=== PATIENT | male | born 1965 | race Caucasian/White ===

== ENCOUNTER 2018-01-02 14:53 | Outpatient (CLI) | payer BC ==
--- NOTE | 2018-01-02 15:23 | CT ---
CT BRAIN WITHOUT CONTRAST: Date: 01/02/18 HISTORY: Subdural hematoma. COMPARISON: CT brain from [facility] dated 01/01/18, although this is of a different patient name. FINDINGS: Mixed density subdural hematoma along the right convexity has increased in size in maximal dimension of 16.0 mm, previously 12.0 mm. There is some mild edema and loss of sulcation of the right frontal, temporal, and parietal lobes. There is midline shift of right to left of 15 mm, subfalcine herniation . This midline shift had only been 10 mm on the prior examination. There is early right uncal herniat ion. There is dilatation of the right lateral ventricular system. No new hemorrhage is appreciated. IMPRESSION: Enlarging right subdural hematoma and worsening right to left midline shift. Findings discussed with the neurosurgeon JAMISON. Plan is for patient to go to [facility], who was noti fied of incoming patient. POS: [facility]
== END 2018-01-02 14:54 | disposition home or self-care (01) ==
LOC: TBSIIMAG 14:53
PROVIDERS: ATTEND Neurological Surgery
DX: S06.5X0A Traumatic subdural hemorrhage without loss of consciousness, initial encounter (principal)
CPT/HCPCS: 70450

== ENCOUNTER 2018-01-02 15:38 | Inpatient (IN) | payer BC ==
[2018-01-02] MEDS ORDERED: Thrombin 5000 UNITS/5 ML VIAL ONE (15:55)
[2018-01-02] MEDS ORDERED: Lidocaine 0.5%/Epinephrine 1:200,000 50 ml Vial ONE (15:55)
[2018-01-02 16:07] LABS: #Basophils 0.1 thou/uL (0.0-0.2); #Lymphocytes 1.4 thou/uL (1.20-3.40); #Monocytes 0.9 thou/uL (0.11-0.59); #Neutrophils 5.4 thou/uL (1.40-6.50); %Basophils 0.8 % (0.0-1.0); %Eosinophils 0.4 % (0.0-10.0); %Lymphocytes 17.7 % (21.0-51.0); %Monocytes 11.2 % (0.0-10.0); %Neutrophils 69.8 % (42.0-75.0); Hemoglobin 14.2 g/dL (14.0-18.0); Mean Corpuscular Hemoglobin 33.1 pg (27.0-31.0); Mean Corpuscular Volume 97.3 fL (78.0-98.0); Mean Platelet Volume 5.9 fL (7.4-10.4); Platelet Count 420 thou/uL (130-400); RBC Distribution Width 12.3 % (11.5-14.5); Red Blood Cell (RBC) Count 4.28 mill/uL (4.70-6.10); White Blood Cell (WBC) Count 7.8 thou/uL (4.8-10.8)
[2018-01-02 16:17] LABS: PTT 28.1 SEC (22.9-36.1); Prothrombin Time 12.9 SEC (12.0-14.7)
[2018-01-02] MEDS ORDERED: Fentanyl 100 MCG/2 ML VIAL ONE ×2 (16:17→17:30)
[2018-01-02 16:27] LABS: ALT (SGPT) 13 U/L (8-55); AST (SGOT) 11 U/L (5-34); Albumin 4.3 g/dL (3.5-5.0); Alkaline Phosphatase 83 U/L (40-150); Anion Gap 12 mmol/L (10-20); BUN (Urea Nitrogen) 12 mg/dL (8.4-25.7); Bilirubin, Total 0.7 mg/dL (0.2-1.2); Calc. Creatinine Clearance 0 mL/min (70-130); Calcium 10.3 mg/dL (7.8-10.44); Carbon Dioxide 27 mmol/L (22-29); Chloride 104 mmol/L (98-107); Estimated GFR-MDRD Greater than 90; Globulin 3.3 g/dL (2.4-3.5); Glucose 104 mg/dL (70-105); Potassium 4.1 mmol/L (3.5-5.1); Protein, Total 7.6 g/dL (6.0-8.3); Sodium 139 mmol/L (136-145)
[2018-01-02] MEDS ORDERED: Succinylcholine Chloride 20 MG/ML 10 ml SYRINGE FS ONE (16:43)
[2018-01-02] MEDS ORDERED: Bacitracin Zinc Ointment 30 gm TUBE ONE ×2 (17:29→17:30)
[2018-01-02] MEDS ORDERED: diphenhydrAMINE 50 MG/ML VIAL IVP PRN (17:31)
[2018-01-02] MEDS ORDERED: Mag-Al 1200 mg/1200 mg/30 ML UDCUP PO PRN (17:31)
[2018-01-02] MEDS ORDERED: Labetalol HCl 100 MG/20 ML VIAL SLOW IVP PRN (17:31)
[2018-01-02] MEDS ORDERED: Ondansetron HCl/PF 4 MG/2 ML Vial IVP PRN (17:31)
[2018-01-02] MEDS ORDERED: Promethazine HCl 25 MG/ML VIAL SLOW IVP PRN (18:00)
[2018-01-02] MEDS ORDERED: Promethazine HCl 25 MG/ML VIAL IM PRN (18:00)
[2018-01-02] MEDS ORDERED: CEFAZOLIN/Water 2 GM/20 ML SYRINGE SLOW IVP SCH (18:00)
[2018-01-02 19:55] VITALS: BMI 26.8
[2018-01-02] MEDS: Sodium Chloride 0.9% 1,000 ML IV SCH (20:16)
--- NOTE | 2018-01-03 | OP ---
DATE OF PROCEDURE: 01/02/2018 SURGEON: Isauro Sahu MD CLIN APPLICATION SPECIALIST: Juvencio Hussein PA-C INDICATION: Prevent neurologic decline. DIAGNOSIS: Acute on subacute chronic subdural hematoma over the right cerebral convexity. PROCEDURE: Right frontal edgar hole with evacuation of subdural hematoma. ANESTHESIA: General. DESCRIPTION OF PROCEDURE: The patient was brought into the operating room and placed under general a nesthesia. He was placed on the table in the supine position. A linear incision was planned over th e right frontal bone. This area was infiltrated with lidocaine and prepped and draped in usual steri le fashion. Following an appropriate operative pause, the incision was created. A self-retaining re tractor was placed. A administrative services coordinator was used to place a edgar hole. The underlying dura was identified and a cruciate incision placed within the dura. Acute clot as well as significant degree of chronic blood was irrigated away. A red rubber tube drain was placed through the edgar hole and brought out t hrough a separate puncture site from within the skin. The wound was then closed in anatomic layers a nd a pressure dressing was applied. There were no known procedural complications.
[2018-01-03] MEDS: CEFAZOLIN/Water 2 GM/20 ML SYRINGE SLOW IVP SCH ×3 (00:37→16:32)
[2018-01-03] MEDS: Acetaminophen 325 MG TAB PO PRN ×2 (04:34→16:28)
[2018-01-03 04:49] LABS: #Basophils 0.1 thou/uL (0.0-0.2); #Lymphocytes 1.4 thou/uL (1.20-3.40); #Neutrophils 6.8 thou/uL (1.40-6.50); %Basophils 0.6 % (0.0-1.0); %Eosinophils 0.3 % (0.0-10.0); %Lymphocytes 14.8 % (21.0-51.0); %Neutrophils 73.3 % (42.0-75.0); Hemoglobin 13.3 g/dL (14.0-18.0); Mean Corpuscular HGB CONC 33.9 g/dL (32.0-36.0); Mean Corpuscular Hemoglobin 33.1 pg (27.0-31.0); Mean Corpuscular Volume 97.8 fL (78.0-98.0); Mean Platelet Volume 6.1 fL (7.4-10.4); Platelet Count 362 thou/uL (130-400); RBC Distribution Width 12.4 % (11.5-14.5); Red Blood Cell (RBC) Count 4.01 mill/uL (4.70-6.10); White Blood Cell (WBC) Count 9.3 thou/uL (4.8-10.8)
[2018-01-03 05:29] LABS: Anion Gap 14 mmol/L (10-20); BUN (Urea Nitrogen) 8 mg/dL (8.4-25.7); Calc. Creatinine Clearance 139 mL/min (70-130); Calcium 9.8 mg/dL (7.8-10.44); Carbon Dioxide 25 mmol/L (22-29); Chloride 104 mmol/L (98-107); Estimated GFR-MDRD Greater than 90; Glucose 92 mg/dL (70-105); Potassium 3.9 mmol/L (3.5-5.1); Sodium 139 mmol/L (136-145)
[2018-01-03] MEDS: Metoprolol Tartrate 50 MG TAB PO SCH ×2 (08:16→21:18)
[2018-01-03] MEDS: Sodium Chloride 0.9% 1,000 ML IV SCH ×2 (08:16→16:20)
--- NOTE | 2018-01-03 14:25 | CON ---
DATE OF CONSULTATION: 01/03/2018 SERVICE: Pulmonary Medicine. REASON FOR CONSULTATION: ICU patient. HISTORY OF PRESENT ILLNESS: The patient is a 52-year-old white male with past medical history significant for hypertension. He was in his usual state of health until a couple of weeks ago when he had onset of headache. He had a subdural hematoma. This was observed for a period of time, but ultimately, did not require any additional intervention. He was discharged from the hospital, but the headache got worse. He presented to Neurosurgery in the outpatient setting. Because of some new onset neurologic changes, he was subsequently admitted to the hospital after craniotomy was performed and evacuation of the subdural was done. He is postop day #1 from the surgery. He has a drain in place. He denies any current fevers, chills, nausea, vomiting, chest pain, shortness of breath. His only neurologic complaint is a little bit of apraxia. He reached over and felt the remote and picked up. When he did that, he could not identify with his eyes closed as a remote control. PAST MEDICAL HISTORY: Hypertension. PAST SURGICAL HISTORY: 1. Herniorrhaphy. 2. Craniotomy for subdural hematoma. SOCIAL HISTORY: He chews tobacco on a daily basis. He has a [id number]-czds history of smoking and continues to smoke roughly 1 pack per day. He denies any significant alcohol or illicit drug use. FAMILY HISTORY: Noncontributory. ALLERGIES: No known drug allergies. MEDICATIONS: List of his inpatient medications were reviewed. No specific updates were made at this time. REVIEW OF SYSTEMS: General, head, ears, eyes, nose, throat, cardiovascular, respiratory, GI, , musculoskeletal, neurologic and skin is negative as mentioned in the HPI. PHYSICAL EXAMINATION: VITAL SIGNS: Afebrile with a T-max of 100.1, pulse 65, blood pressure 130/83, respirations 22, saturation 100% on room air. GENERAL: The patient is awake, alert, no apparent distress. LUNGS: Excellent air entry with no prolonged expiratory phase, wheezing, rhonchi, or crackles present. HEART: Normal rate, regular. ABDOMEN: Soft, nontender, nondistended. Bowel sounds are positive. MUSCULOSKELETAL: No cyanosis or clubbing. No pitting in the bilateral lower extremities. NEUROLOGIC: Grossly nonfocal with the exception of some apraxia. LABORATORY DATA: WBC 9.3, hemoglobin 13.3, platelets 362,000. INR 1.0. Basic metabolic profile and liver function studies are essentially unremarkable. ASSESSMENT: 1. Subdural hematoma, acute on chronic. 2. Abnormal sterogenesis. 3. Right frontal bur hole with evacuation of subdural hematoma, postop day #1. PLAN: The patient is doing absolutely fantastic from a cardiovascular and respiratory standpoint. He will remain in the ICU until the drain is removed and he remains neurologically stable. Critical Care will continue to follow along in the meantime. ANN
[2018-01-03] MEDS: hydrALAZINE 20 MG/ML VIAL SLOW IVP PRN (21:21)
[2018-01-04] MEDS: Acetaminophen 325 MG TAB PO PRN ×3 (00:13→15:11)
[2018-01-04] MEDS: CEFAZOLIN/Water 2 GM/20 ML SYRINGE SLOW IVP SCH ×2 (00:14→09:00)
[2018-01-04] MEDS: Sodium Chloride 0.9% 1,000 ML IV SCH (03:15)
[2018-01-04] MEDS: hydrALAZINE 20 MG/ML VIAL SLOW IVP PRN (07:41)
[2018-01-04] MEDS: Metoprolol Tartrate 50 MG TAB PO SCH (08:59)
--- NOTE | 2018-01-04 10:18 | PRG ---
DATE OF SERVICE: 01/04/2018 SUBJECTIVE: Mr. Joel is now postop day #2 from a right subdural hematoma evacuation. He is azeb lewis in the last 12 hours, put out 70 mL while putting out 150 mL 12 hours prior to that. We will le ave the drain in place. He has minimal discomfort and overall looks to be doing very well. We will continue to follow and check again this afternoon to see if the output has tapered. As soon as it walker s been down to either 20-30 mL per 12 hour period, then we can discontinue and start talking about di moreno home. Juvencio Hussein PA-C dictating for Dr. Sahu.
--- NOTE | 2018-01-04 16:32 | PRG ---
DATE OF SERVICE: 01/04/2018 SERVICE: Pulmonary Medicine. INTERVAL HISTORY: The patient is actually doing fantastic. He has some head pain associated with th e procedure, but the headache that brought him to the hospital is gone. He is not having any nausea or vomiting. He is not having any lightheadedness or any significant neurologic discomforts. His ap raxia seems to be improving a little bit, although it still present. OBJECTIVE: VITAL SIGNS: Afebrile, pulse 72, blood pressure 135/83, respirations 16, saturation 98% on room air. GENERAL: The patient is awake, alert, no apparent distress. LUNGS: Excellent air entry with no prolonged expiratory phase, wheezing, rhonchi or crackles. HEART: Normal rate, regular. ABDOMEN: Soft, nontender, nondistended. Bowel sounds are positive. MUSCULOSKELETAL: No cyanosis or clubbing. No pitting in the bilateral lower extremities. NEUROLOGIC: Grossly nonfocal. LABORATORY DATA: WBC 9.3, hemoglobin 13.3, platelets 362,000. Neutrophil count is stable. ASSESSMENT: 1. Subdural hematoma, acute on chronic. 2. Apraxia, improving. 3. Right frontal bur hole with evacuation of subdural hematoma, postoperative day #2. DISCUSSION AND PLAN: The patient is doing absolutely fantastic. He has no further requirements for inpatient Pulmonary or Critical Care opinion, and I will sign off. Please call with additional quest ions or concerns moving forward.
[2018-01-04 16:44] VITALS: BP 161/92; TEMP 99
[2018-01-04] MEDS ORDERED: Metoprolol Tartrate 50 MG TAB PO SCH (21:00)
== END 2018-01-04 17:34 | disposition home or self-care (01) | DRG 27 ==
LOC: ERS 15:38 → CCU 18:06 → SURG A 01-03 14:40
PROVIDERS: ADMIT Neurological Surgery; ATTEND Neurological Surgery
PROC: 00943ZZ Drainage of Intracranial Subdural Space, Percutaneous Approach (ICD-10-PCS; principal; 2018-01-02)
DX: I62.01 Nontraumatic acute subdural hemorrhage (principal); I62.03 Nontraumatic chronic subdural hemorrhage; F17.210 Nicotine dependence, cigarettes, uncomplicated; F17.220 Nicotine dependence, chewing tobacco, uncomplicated; R48.2 Apraxia
CPT/HCPCS: 36415; 70450; 80048; 80053; 85025; 85610; 85730; G8978-GP-CH; G8979-GP-CH; G8980-GP-CH; J0131; J0360; J2001; J2270; J3010

== ENCOUNTER 2018-02-12 08:06 | Outpatient (CLI) | payer BC ==
--- NOTE | 2018-02-12 09:57 | CT ---
HEAD CT WITHOUT CONTRAST: HISTORY: Follow up subdural. COMPARISON: 01/02/2018 FINDINGS: There is a small amount of hypodense fluid in the extraaxial space, along the right frontal convexity . Minimal mass effect upon the right frontal lobe. The maximum diameter of this hypodensity is 8 mm . A chronic subdural collection is favored. The overall degree of subdural fluid has significantly decreased when compared to the prior examination, as has the overall mass effect. Currently, there i s no midline shift. The basilar cisterns are patent. Cortical salcedo white matter differentiation is preserved. No evidence of ventriculomegaly/hydrocephalus. The calvarium is intact. A right frontal bur hole defect is noted. Adequate aeration of the sinuses and mastoid air cells. IMPRESSION: 1. Residual, small, hypodense collection along the right frontal convexity, likely representing a ch ronic subdural hematoma. 2. Improvement in terms of the degree of mass effect. There is no midline shift. POS: [facility]
== END 2018-02-12 08:07 | disposition home or self-care (01) ==
LOC: TBSIIMAG 08:06
PROVIDERS: ATTEND Neurological Surgery
DX: S06.5X0A Traumatic subdural hemorrhage without loss of consciousness, initial encounter (principal)
CPT/HCPCS: 70450

== ENCOUNTER 2018-03-25 15:36 | Outpatient (CLI) | payer BC | END 2018-03-25 15:37 | disposition home or self-care (01) | LOC: BICCT 15:36 | PROVIDERS: ATTEND Neurological Surgery | DX: I62.00 Nontraumatic subdural hemorrhage, unspecified (principal); R90.89 Other abnormal findings on diagnostic imaging of central nervous system | CPT/HCPCS: 70450 ==

== ENCOUNTER 2018-07-03 08:44 | Outpatient (CLI) | payer BC ==
--- NOTE | 2018-07-03 10:43 | CT ---
CT BRAIN: 07/03/2018 PROVIDED CLINICAL HISTORY: Follow up subdural hematoma. COMPARISON: 03/25/2018 FINDINGS: The ventricular system is unchanged in size and morphology. There is no evidence for acute intracran ial hemorrhage. There is minimal material of density, slightly increased with respect to CSF, overly ing the right frontal convexity, appearing decreased with respect to the prior study. This is adjace nt to a right frontal bur hole. There is no evidence for mass effect or midline shift. The extracra nial soft tissues and osseous structures demonstrate an otherwise unremarkable CT appearance. IMPRESSION: Minimal chronic subdural blood overlying the right frontal convexity. POS: [facility]
== END 2018-07-03 08:45 | disposition home or self-care (01) ==
LOC: TBSIIMAG 08:44
PROVIDERS: ATTEND Neurological Surgery
DX: S06.5X0A Traumatic subdural hemorrhage without loss of consciousness, initial encounter (principal)
CPT/HCPCS: 70450

== ENCOUNTER 2018-09-17 08:34 | Outpatient (CLI) | payer BC ==
[2018-09-17 10:44] LABS: Bilirubin Negative (Negative); Blood, Urine Negative (Negative); Glucose, Urine (Dipstick) Negative (Negative); Leukocyte Negative (Negative); Nitrite Negative (Negative); Protein, Urine (Dipstick) Negative (Neg-Trace); Urobilinogen 0.2 mg/dL (0.2-1.0)
[2018-09-17 10:51] LABS: Clarity Clear (Clear)
[2018-09-17 11:09] LABS: Bacteria/HPF None Seen HPF (None Seen); Hyaline Casts/LPF NONE SEEN LPF (0-3 Hyaline); RBC/HPF 0-3 HPF (0-3); Squamous Epithelial None Seen HPF (0-3); WBC/HPF None Seen HPF (0-3)
--- NOTE | 2018-09-17 13:05 | EKG ---
Test Reason : Blood Pressure : / mmHG Vent. Rate : 086 BPM Atrial Rate : 086 BPM P-R Int : 150 ms QRS Dur : 094 ms QT Int : 384 ms P-R-T Axes : 051 052 020 degrees QTc Int : 459 ms Normal sinus rhythm Normal ECG No previous ECGs available Confirmed by CRISTA MELTON ([id number]) on 09/17/2018 1:05:21 PM Referred By: MARLON Confirmed By:CRISTA MELTON
== END 2018-09-17 08:35 | disposition home or self-care (01) ==
LOC: LABBT 08:34
PROVIDERS: ATTEND Orthopaedic Surgery
DX: Z01.818 Encounter for other preprocedural examination (principal); M16.11 Unilateral primary osteoarthritis, right hip
CPT/HCPCS: 81001; 87081; 93005; 93010

== ENCOUNTER 2018-09-17 08:45 | Inpatient (IN) | payer BC ==
[2018-09-28 09:56] LABS: INR-International Normal Ratio 0.9; Prothrombin Time 12.2 SEC (12.0-14.7)
[2018-09-28 10:14] LABS: #Basophils 0.1 thou/uL (0.0-0.2); #Lymphocytes 1.4 thou/uL (1.20-3.40); #Monocytes 0.5 thou/uL (0.11-0.59); #Neutrophils 5.4 thou/uL (1.40-6.50); %Eosinophils 0.5 % (0.0-10.0); %Lymphocytes 18.4 % (21.0-51.0); %Monocytes 6.9 % (0.0-10.0); %Neutrophils 73.2 % (42.0-75.0); Anion Gap 16 mmol/L (10-20); BUN (Urea Nitrogen) 20 mg/dL (8.4-25.7); Calc. Creatinine Clearance 113 mL/min (70-130); Calcium 10.3 mg/dL (7.8-10.44); Carbon Dioxide 25 mmol/L (22-29); Chloride 102 mmol/L (98-107); Estimated GFR-MDRD 82; Glucose 107 mg/dL (70-105); Hemoglobin 14.6 g/dL (14.0-18.0); Mean Corpuscular HGB CONC 33.5 g/dL (32.0-36.0); Mean Corpuscular Hemoglobin 31.8 pg (27.0-31.0); Mean Corpuscular Volume 95.2 fL (78.0-98.0); Mean Platelet Volume 6.8 fL (7.4-10.4); Platelet Count 317 thou/uL (130-400); Potassium 3.7 mmol/L (3.5-5.1); RBC Distribution Width 12.3 % (11.5-14.5); Sodium 139 mmol/L (136-145); White Blood Cell (WBC) Count 7.3 thou/uL (4.8-10.8)
[2018-09-29] MEDS ORDERED: Vancomycin HCl 1.5 GM in Sodium Chloride 0.9% 250 ML 300 ML IVPB SCH (06:00)
[2018-09-29] MEDS ORDERED: Sodium Chloride 0.9% 100 ML ONE (06:23)
[2018-09-29] MEDS ORDERED: Tranexamic Acid 1,000 MG/10 ML VIAL ONE (06:23)
[2018-09-29] MEDS ORDERED: Fentanyl 100 MCG/2 ML VIAL ONE ×2 (06:25→06:53)
[2018-09-29] MEDS ORDERED: Midazolam HCl 2 mg/2 ml Vial ONE (06:25)
[2018-09-29] MEDS ORDERED: Bupivacaine/Epinephrine 0.25% 30 ML VIAL ONE (06:53)
[2018-09-29] MEDS ORDERED: Promethazine HCl 25 MG/ML VIAL IM PRN ×2 (07:07→07:15)
[2018-09-29] MEDS ORDERED: diphenhydrAMINE 25 MG CAP PO PRN (07:07)
[2018-09-29] MEDS ORDERED: Zolpidem Tartrate 5 MG TAB PO PRN ×2 (07:07→07:15)
[2018-09-29] MEDS ORDERED: Ondansetron PF 4 MG/2 ML Vial IVP PRN ×2 (07:07→07:15)
[2018-09-29] MEDS ORDERED: Acetaminophen 325 MG TAB PO PRN (07:07)
[2018-09-29] MEDS ORDERED: Naloxone HCl 0.4 mg/ml Vial IVP PRN (07:15)
[2018-09-29] MEDS ORDERED: HYDROcodone/Acetaminophen 5/325 mg Tablet PO PRN ×2 (07:15)
[2018-09-29] MEDS ORDERED: Ketorolac Tromethamine 30 MG/ML VIAL IVP PRN (07:15)
[2018-09-29] MEDS ORDERED: diphenhydrAMINE 50 MG/ML VIAL IVP PRN (07:15)
[2018-09-29] MEDS ORDERED: fentaNYL Citrate/PF 500 MCG, Bupivacaine 10 ML in Sodium Chloride 0.9% 80 ML EPIDURAL SCH (07:15)
[2018-09-29] MEDS ORDERED: Naloxone HCl 0.4 mg/ml Vial IV PRN (07:15)
[2018-09-29] MEDS ORDERED: Promethazine HCl 25 MG SUPP PR PRN (07:15)
[2018-09-29] MEDS ORDERED: diphenhydrAMINE 50 MG/ML VIAL IM PRN (07:15)
[2018-09-29] MEDS ORDERED: Hydrocerin (Eucerin) Cream 120 gm Jar TOP PRN (07:15)
[2018-09-29] MEDS ORDERED: traMADol HCl 50 MG TAB PO PRN ×2 (07:15)
[2018-09-29] MEDS ORDERED: Ondansetron PF 4 MG/2 ML Vial ONE (09:05)
[2018-09-29] MEDS ORDERED: Dexamethasone 20 MG/5 ML VIAL ONE (09:05)
[2018-09-29] MEDS ORDERED: PROPOFOL 200 MG/20 ML VIAL ONE (09:05)
[2018-09-29] MEDS ORDERED: Glycopyrrolate 0.2 MG/ML 5 ML SYRINGE ONE (09:05)
[2018-09-29] MEDS ORDERED: Lidocaine 1% PF 5 ML VIAL ONE (09:05)
[2018-09-29] MEDS ORDERED: ePHEDrine 50 MG/ML VIAL ONE (09:05)
[2018-09-29] MEDS ORDERED: Ketorolac Tromethamine 30 MG/ML VIAL ONE (09:05)
[2018-09-29] MEDS ORDERED: Rocuronium Bromide 10 MG/ML (10ML VIAL) ONE (09:05)
--- NOTE | 2018-09-29 09:19 | RAD ---
RIGHT HIP TWO VIEWS: History: Post op total hip follow up. FINDINGS/IMPRESSION: Right hip prosthesis has been placed. Components appear in adequate position and alignment. POS: [facility]
[2018-09-29 10:33] VITALS: BMI 27.8
--- NOTE | 2018-09-29 10:45 | PDOC.PN ---
- Subjective Encounter Start Date: 09/29/18 Encounter Start Time: 10:35 Subjective: Consult for gen med mgmt s/p R VILLA. Hx of HTN, HLD and subdural -: hematoma. No new complaints currently. Reviewed all hx, labs, x-rays -: and EKG's. - Objective MAR Reviewed: Yes Vital Signs & Weight: Vital Signs (12 hours) Temp Pulse Resp BP Pulse Ox 09/29/18 09:40 97.4 F L 68 20 108/66 100 Weight Weight 200 lb Result Diagrams: 09/28/18 08:50 09/28/18 08:50 EKG Reviewed by me: Yes (Tele - SR in 80's, no acute changes) Phys Exam - Physical Examination Constitutional: NAD HEENT: PERRLA, sclera anicteric, oral pharynx no lesions Neck: no nodes, no JVD, supple, full ROM Respiratory: no wheezing, no rales, no rhonchi, clear to auscultation bilateral S1, S2 Cardiovascular: RRR, no significant murmur, no rub, gallop Gastrointestinal: soft, non-tender, no distention, positive bowel sounds R hip with surgical dressing in place Musculoskeletal: pulses present, edema present Neurological: moves all 4 limbs Psychiatric: A&O x 3 Skin: no rash, normal turgor, cap refill <2 seconds Dx/Plan (1) HTN (hypertension) Code(s): I10 - ESSENTIAL (PRIMARY) HYPERTENSION Status: Chronic Qualifiers: Hypertension type: essential hypertension Qualified Code(s): I10 - Essential (primary) hypertension Comment: Continue HCTZ 25mg daily, Lisinopril 40mg daily, serial BP monitoring (2) HLD (hyperlipidemia) Code(s): E78.5 - HYPERLIPIDEMIA, UNSPECIFIED Status: Chronic Comment: Continue Crestor (3) DJD (degenerative joint disease) Code(s): M19.90 - UNSPECIFIED OSTEOARTHRITIS, UNSPECIFIED SITE Status: Chronic Qualifiers: Osteoarthritis location: hip Laterality: right Comment: Pain control, s/p R VILLA (4) S/P total hip arthroplasty Code(s): Z96.649 - PRESENCE OF UNSPECIFIED ARTIFICIAL HIP JOINT Status: Acute Qualifiers: Laterality: right Qualified Code(s): Z96.641 - Presence of right artificial hip joint Comment: Pain control, ASA 81mg BID, Joint U protocol - Plan plan discussed w/ family, continue antibiotics, PT/OT, pediatric social worker, out of bed/ambulate, DVT proph w/SCDs Stable currently -: Continue Lisinopril/HCTZ -: ASA 81mg BID -: Pain control -: OOB/PT * Thank you for the consult. Will continue to follow with primary service.
--- NOTE | 2018-09-29 11:11 | OP ---
DATE OF PROCEDURE: 09/29/2018 PREOPERATIVE DIAGNOSIS: End-stage bicompartmental osteoarthritis, right hip. POSTOPERATIVE DIAGNOSIS: End-stage bicompartmental osteoarthritis, right hip. PROCEDURE PERFORMED: Press-fit right total hip arthroplasty. BIOMETRICS INSTRUCTOR: Jasen Arredondo PA-C ANESTHESIA: General via endotracheal tube augmented with indwelling epidural. COMPONENTS USED: [employer] size 3.5 Accolade press-fit hip stem with a 54 mm press-fit Tritanium hemispherical cluster hole shell, 36 mm 10-degree polyethylene fixed-bearing insert. ESTIMATED BLOOD LOSS: Less than 150. FINDINGS: End-stage severe degenerative bicompartmental disease, eppt-tl-yeak arthrosis, periarticular osteophyte formation, large serous effusion, and hypertrophic synovium. INPUT: 1400 crystalloid. OUTPUT: 500 clear yellow urine. DRAINS: None. SPECIMENS: None. COMPLICATION: None. COUNTS: Correct. INDICATIONS FOR SURGERY: Raúl is a 53-year-old white male, who has had progressive right hip, groin, and thigh pain and problem with standing and walking for the last 5 to 7 years. He has failed conservative management and elected to proceed with total hip arthroplasty. He has definitive treatment of his pain. PROCEDURE IN DETAIL: After informed consent was obtained in the preoperative holding area, the patient was taken to the operative suite where general anesthesia was induced. The patient was then positioned in the lateral decubitus position. The hip was then prepped and draped in usual sterile fashion. The patient received preoperative antibiotics. Prior to incision, time-out was called and all members of the surgical team agreed upon site, surgeon, and patient. After this, a longitudinal incision was made directly over the trochanter, noted by palpation extending 2 fingerbreadths above and below the trochanter. The deeper subcutaneous layer was undermined with Bovie electrocautery. The iliotibial band was encountered and incised sharply and the plane below this was developed bluntly. A Charnley retractor was placed to hold this opened. The lateral aspect of the trochanter and the abductor muscles were encountered and then reflected anteriorly off the trochanter using Bovie electrocautery. Once this was completed, the anterior capsule was then encountered and identified and copious capsulotomy was carried out, exposing the femoral neck and head. Dislocation maneuver was then performed and an in situ provisional neck cut was then made using the oscillating saw. Attention was then turned to acetabular preparation. Sequential reaming was carried out up to the appropriate diameter and a trial was then malleted into place with good firm resistance and no pullout. The permanent acetabular shell was then malleted squarely into place, as was the appropriate liner. Once completed, the wound was copiously irrigated and attention was then turned to femoral preparation. Flexion and external rotation were performed of the exposed thigh and femoral elevators were then placed at the proximal aspect of the wound. Canal finder was used to establish the length of the canal and sequential reaming was carried out, followed by broaching. Once the appropriate stability was established with the trial broaches with flexion, extension and rotational stability, we did trial with neutral and 2 mm offset incremental necks. Once the appropriate size was decided upon, with good stability noted with flexion, extension, internal and external rotation and shuck being negative, we removed the femoral trial broach and malletted into place the permanent prosthesis with good firm fit, which was also stable to rotation. Again, the hip felt very stable to flexion, extension, internal and external rotation. Leg lengths appeared near anatomic clinically and we were quite happy with prosthesis placement. Copious irrigation was then carried out through the entirety of the wound. Primary closure of the abductors was accomplished with interrupted #2 Vicryl [id number]-[id number] stitches and the IT band was then closed with interrupted #2 Vicryl, oversewn with a #2 running barbed Quill stitch. Subcutaneous fascia was closed with running barbed Quill stitch and a subcuticular Monocryl barbed Quill stitch was used for skin closure and augmented with skin cement. A sterile dressing was applied. The procedure was terminated without any complication. All counts were correct. The patient was awakened in the operative suite and taken to the recovery room in stable condition. Job ID: [id number]
[2018-09-29] MEDS: Sodium Chloride 0.9% 1,000 ML IV SCH ×2 (11:18→13:15)
[2018-09-29] MEDS: Aspirin 81 mg Enteric Coated Tablet PO SCH ×2 (11:18→21:30)
[2018-09-29] MEDS: CEFAZOLIN 2 GM in Premix Bag 1 BAG IVPB SCH ×2 (13:14→21:31)
[2018-09-29] MEDS: Lisinopril 20 MG TAB PO SCH (21:29)
[2018-09-29] MEDS: Hydrochlorothiazide 25 MG TAB PO SCH (21:29)
[2018-09-29] MEDS: Rosuvastatin 20 MG TAB PO SCH (21:30)
[2018-09-30] MEDS: Fentanyl 5 mcg/Bup 0.075% Cadd 100 ML EPIDURAL SCH ×2 (01:43→18:33)
[2018-09-30 06:21] LABS: Hemoglobin 11.8 g/dL (14.0-18.0); Mean Corpuscular HGB CONC 33.5 g/dL (32.0-36.0); Mean Corpuscular Hemoglobin 32.5 pg (27.0-31.0); Mean Platelet Volume 6.7 fL (7.4-10.4); Platelet Count 246 thou/uL (130-400); RBC Distribution Width 12.1 % (11.5-14.5); Red Blood Cell (RBC) Count 3.62 mill/uL (4.70-6.10); White Blood Cell (WBC) Count 7.9 thou/uL (4.8-10.8)
[2018-09-30] MEDS: Sodium Chloride 0.9% 1,000 ML IV SCH ×2 (07:18→13:35)
[2018-09-30] MEDS: Ferrous Gluconate 324 MG TAB PO SCH ×2 (08:57→16:43)
[2018-09-30] MEDS: Multivitamin W/ Minerals 1 TAB PO SCH (08:58)
[2018-09-30] MEDS: Aspirin 81 mg Enteric Coated Tablet PO SCH (08:58)
[2018-09-30] MEDS: Senokot S 8.6-50 MG TAB PO SCH ×2 (08:59→21:56)
--- NOTE | 2018-09-30 09:54 | PRG ---
DATE OF SERVICE: 09/30/2018 SUBJECTIVE: Mr. Rooney is a 53-year-old white male who is postop day #1 from a right total hip arthroplasty. He is doing very well. Yesterday, he walked 180 feet to 200 feet very well without any difficulty. OBJECTIVE: VITAL SIGNS: Temperature is 98.9, pulse is 90, respiratory rate 16 and nonlabored, blood pressure is 107/76. GENERAL: He is alert and oriented to person, place, time, situation, grossly nonfocal. His incision is clean of any erythema. His epidural is intact. There is no strike through in the dressing and he has good range of motion and strength in the left lower extremity. LABORATORY DATA: Hemoglobin, hematocrit 11.8 and 35.1. IMPRESSION: 1. A 53-year-old male postoperative day #1 right total hip arthroplasty, doing well. 2. Postoperative hemorrhagic asymptomatic anemia. Continue current care. Discharge home tomorrow. Job ID: [id number]
--- NOTE | 2018-09-30 13:42 | PRG ---
DATE OF SERVICE: 09/30/2018 ADDENDUM: SUBJECTIVE: Toribio gives me a history of having an stgys-wb-yjufkeo subdural hematoma in the right frontal convexity in December of last year. He had this evacuated and subsequently has been cautious of anti-inflammatories and blood thinners. After long discussion with the patient and consultation with Dr. Marsh, we decided to go ahead and stop his aspirin for now and probably not place him on discharge since his risk of DVT is very low with mechanical prophylaxis and significant ambulation to include approximately 260 feet yesterday. We will re-evaluate tomorrow. Job ID: [id number]
[2018-09-30] MEDS ORDERED: Polyethylene Glycol 3350 17 GM Packet PO PRN (16:05)
[2018-09-30] MEDS: diphenhydrAMINE 25 MG CAP PO PRN ×2 (16:42→21:50)
[2018-09-30] MEDS: Lisinopril 20 MG TAB PO SCH (21:50)
[2018-09-30] MEDS: Hydrochlorothiazide 25 MG TAB PO SCH (21:55)
[2018-09-30] MEDS: Rosuvastatin 20 MG TAB PO SCH (21:55)
[2018-10-01] MEDS: Sodium Chloride 0.9% 1,000 ML IV SCH ×2 (01:47→08:44)
[2018-10-01 04:57] LABS: Hemoglobin 11.7 g/dL (14.0-18.0); Mean Corpuscular HGB CONC 33.1 g/dL (32.0-36.0); Mean Corpuscular Hemoglobin 32.4 pg (27.0-31.0); Mean Corpuscular Volume 98.1 fL (78.0-98.0); Mean Platelet Volume 6.7 fL (7.4-10.4); Platelet Count 231 thou/uL (130-400); RBC Distribution Width 12.3 % (11.5-14.5); White Blood Cell (WBC) Count 8.7 thou/uL (4.8-10.8)
[2018-10-01] MEDS: Ferrous Gluconate 324 MG TAB PO SCH (08:28)
[2018-10-01] MEDS: Senokot S 8.6-50 MG TAB PO SCH (08:28)
[2018-10-01] MEDS: Multivitamin W/ Minerals 1 TAB PO SCH (08:29)
[2018-10-01] MEDS: diphenhydrAMINE 25 MG CAP PO PRN (08:38)
[2018-10-01 12:16] VITALS: BP 102/64; TEMP 98.1
[2018-10-01] MEDS ORDERED: HYDROcodone/Acetaminophen 10/325 mg Tablet PO PRN ×2 (12:27→12:28)
== END 2018-10-01 14:35 | disposition home or self-care (01) | DRG 470 ==
LOC: SJJU 09-29 05:42 → SURG B 09-29 09:45
PROVIDERS: ADMIT Orthopaedic Surgery; ATTEND Orthopaedic Surgery
PROC: 0SR902A Replacement of Right Hip Joint with Metal on Polyethylene Synthetic Substitute, Uncemented, Open Approach (ICD-10-PCS; principal; 2018-09-29)
DX: M16.11 Unilateral primary osteoarthritis, right hip (principal); D62 Acute posthemorrhagic anemia; I10 Essential (primary) hypertension; E78.5 Hyperlipidemia, unspecified; Z86.79 Personal history of other diseases of the circulatory system
CPT/HCPCS: 36415; 80048; 85025; 85027; 85610; 86850; 86900; 86901; 90471; 90732; G0009; J1100; J1885; J2001; J2250; J2405; J2704; J3010; J3370; J3490; J7050; Q0163

== ENCOUNTER 2019-01-27 12:32 | Outpatient (CLI) | payer BC ==
--- NOTE | 2019-01-27 14:59 | CT ---
BRAIN CT WITHOUT IV CONTRAST: 01/27/19 HISTORY: History of subdural hematoma one year ago. Vomiting and straining, headache. COMPARISON: 07/03/18. FINDINGS: Right frontal edgar hole. No focal mass or midline shift. No intra or extra-axial hemorrhage. Sinuses and mastoids are clear of acute process. Resolution of the previously noted small subdural chronic c hanges on the right side from 07/03/18. IMPRESSION: Stable right frontal edgar hole. No mass or bleed or other acute process. POS: [facility]
== END 2019-01-27 12:33 | disposition home or self-care (01) ==
LOC: SCSCT 12:32
PROVIDERS: ATTEND Internal Medicine
DX: I62.00 Nontraumatic subdural hemorrhage, unspecified (principal)
CPT/HCPCS: 70450

== ENCOUNTER 2019-03-18 05:57 | Day surgery (SDC) | payer BC ==
[2019-03-10 15:46] VITALS: BMI 27.8
[2019-03-18] MEDS ORDERED: Fentanyl 100 MCG/2 ML VIAL ONE (06:28)
[2019-03-18] MEDS ORDERED: Midazolam HCl 2 mg/2 ml Vial ONE (06:28)
[2019-03-18] MEDS ORDERED: traMADol HCl 50 MG TAB PO PRN ×2 (07:10)
[2019-03-18] MEDS ORDERED: Ropivacaine 0.2% 550 ML 550 ML NERVE BLCK SCH (07:10)
[2019-03-18] MEDS ORDERED: Ondansetron PF 4 MG/2 ML Vial IVP PRN (07:10)
[2019-03-18] MEDS ORDERED: Zolpidem Tartrate 5 MG TAB PO PRN (07:10)
[2019-03-18] MEDS ORDERED: Fentanyl 100 MCG/2 ML VIAL IV PRN (07:10)
[2019-03-18] MEDS ORDERED: Promethazine HCl 25 MG/ML VIAL IM PRN (07:10)
[2019-03-18] MEDS ORDERED: Ropivacaine 0.5% HCl/PF (150 MG/30 ML VIAL) ONE (12:20)
[2019-03-18] MEDS ORDERED: Ropivacaine 0.2% HCl/PF (40 MG/20 ML VIAL) ONE (12:20)
[2019-03-18] MEDS ORDERED: Ondansetron PF 4 MG/2 ML Vial ONE (13:00)
[2019-03-18] MEDS ORDERED: PROPOFOL 200 MG/20 ML VIAL ONE (13:00)
[2019-03-18] MEDS ORDERED: Ketorolac Tromethamine 30 MG/ML VIAL ONE (13:00)
[2019-03-18] MEDS ORDERED: PHENYLEPHRINE-NS 100 MCG/ML 10 ML SYRINGE ONE (13:00)
[2019-03-18] MEDS ORDERED: Dexamethasone 20 MG/5 ML VIAL ONE (13:00)
[2019-03-18] MEDS ORDERED: Rocuronium Bromide 10 MG/ML (10ML VIAL) ONE (13:00)
--- NOTE | 2019-03-18 16:48 | OP ---
DATE OF PROCEDURE: 03/18/2019 PREOPERATIVE DIAGNOSES: Right shoulder biceps tendinosis with supraspinatus and subscapularis subacute rotator cuff tears. POSTOPERATIVE DIAGNOSES: Right shoulder biceps tendinosis with supraspinatus and subscapularis subacute rotator cuff tears. PROCEDURES PERFORMED: Mini open primary repair of subscapularis and infraspinatus rotator cuff tendons with open proximal biceps tenodesis and open acromioplasty. UPSET OPERATOR: Jasen Arredondo PA-C ANESTHESIA: General via endotracheal tube augmented with supraclavicular indwelling block. COMPONENTS USED: One 3-arm Arthrex 5.5 metallic suture anchor with 2 Arthrex 4.5 PushLock interference screws. DRAINS: None. SPECIMENS: None. COMPLICATION: None. COUNTS: Correct. ESTIMATED BLOOD LOSS: Less than 20 mL. FINDINGS: Rotator cuff tear as described on MRI to include superior aspect of the subscapularis, biceps tendinosis, and supraspinatus insertional tear, which was delaminated and articular side in nature. DESCRIPTION OF PROCEDURE: After informed consent was obtained in the preoperatively holding area, the patient obtained preoperative antibiotics and he was taken to the operative suite, where general anesthesia was induced. Once adequate anesthesia was obtained, the patient was positioned appropriately on the operating table in the semirecumbent position and the right upper extremity was prepped and draped in the usual sterile fashion. Prior to incision, a time-out was called. All members of the surgical team agreed on site, surgeon, and patient. Once this was finished, we then made an incision directly over the acromion. After this was completed, an incision was made from the acromioclavicular joint over the acromial spur two fingerbreadths down inferior towards the brachium. The subcutaneous layer was divided with Bovie electrocautery. Bleeding was controlled with same. Two self-sustaining retractors were placed and the deltoid middle raphe was identified and split. Subperiosteal dissection was carried out over the acromion and the acromial spur was fully exposed and identified. This was removed using osteotome and series of rongeurs and a rasp. This would also allow it for better exposure of the rotator cuff in the operative field. The muscle was carried out and dissected. Bursectomy was also performed and the cuff tear was identified. The subscapularis was removed from its superior portion. Biceps tendon was found along the groove with severe tendinosis. This was identified, tagged, and cut with Metzenbaum scissors. The tag was then applied to the suture anchor. The Arthrex 7 mm bioabsorbable screw was then used as interference fit on the proximal tendon in the biceps groove, where it was identified originally. We had good fixation. Attention was then turned to freshening up the supraspinatus tear and identifying the articular side delamination. This was rongeured out and cleaned up. Good fresh bleeding tissue was identified. Subcondylar decortication was then done with the rongeur and we placed a single 5.5 triple suture arm anchor. Three separate stiches were placed and the cuff was then pulled back into anatomic position oversewed. We divided stitches in a double row technique. These were placed with a 4.5 interference screws. We had good watertight finish of the rotator cuff and it moved easily within the socket. There was no rubbing identified. Full range of motion was accomplished. The entire wound was copiously irrigated with normal saline. Primary closure was accomplished with a 0 Ethibond in the transosseous stitches in the superior aspect of the deltoid and a #1 Vicryl was then used to oversew the muscular defect. A 2-0 stitches were placed in the subcutaneous layer. Stainless steel ruma were used to reapproximate the skin. Sterile dressing was applied and the procedure was terminated without any complications. The patient was extubated in the operative suite and taken to recovery room in stable condition. Job ID: [id number]
== END 2019-03-18 11:24 | disposition home or self-care (01) ==
LOC: SDC 05:57
PROVIDERS: ATTEND Orthopaedic Surgery
PROC: 0LQ10ZZ Repair Right Shoulder Tendon, Open Approach (ICD-10-PCS; principal; 2019-03-18)
PROC: 0RQG0ZZ Repair Right Acromioclavicular Joint, Open Approach (ICD-10-PCS; principal; 2019-03-18)
PROC: 0RHJ04Z Insertion of Internal Fixation Device into Right Shoulder Joint, Open Approach (ICD-10-PCS; principal; 2019-03-18)
DX: M75.121 Complete rotator cuff tear or rupture of right shoulder, not specified as traumatic (principal); I10 Essential (primary) hypertension; M19.90 Unspecified osteoarthritis, unspecified site; F17.200 Nicotine dependence, unspecified, uncomplicated; Z79.899 Other long term (current) drug therapy; Z88.5 Allergy status to narcotic agent; Z88.8 Allergy status to other drugs, medicaments and biological substances; Z96.643 Presence of artificial hip joint, bilateral
CPT/HCPCS: A4306; C1713; J0690; J1100; J1885; J2250; J2405; J2704; J2795; J3010

== ENCOUNTER 2021-04-09 09:26 | Outpatient (CLI) | payer BC | END 2021-04-09 09:27 | disposition home or self-care (01) | LOC: BICRAD 09:26 | PROVIDERS: ATTEND Chiropractor | DX: M47.22 Other spondylosis with radiculopathy, cervical region (principal); M79.10 Myalgia, unspecified site; M53.82 Other specified dorsopathies, cervical region | CPT/HCPCS: 72050 ==

== ENCOUNTER 2023-01-10 08:49 | Observation (INO) | payer BC ==
[2023-01-10] MEDS ORDERED: Adenosine 6 MG/2 ML VIAL ONE (09:08)
[2023-01-10 09:12] LABS: #Basophils 0.1 thou/uL (0.0-0.2); #Neutrophils 5.7 thou/uL (1.40-6.50); %Basophils 1.1 % (0.0-1.0); %Eosinophils 0.3 % (0.0-10.0); %Lymphocytes 25.1 % (21.0-51.0); %Monocytes 10.8 % (0.0-10.0); %Neutrophils 62.3 % (42.0-75.0); Hemoglobin 16.6 g/dL (14.0-18.0); Mean Corpuscular HGB CONC 35.2 g/dL (32.0-36.0); Mean Corpuscular Hemoglobin 34.9 pg (27.0-31.0); Mean Corpuscular Volume 99.2 fl (78.0-98.0); Platelet Count 259 10x3/uL (130-400); RBC Distribution Width 13.7 % (11.5-14.5); Red Blood Cell (RBC) Count 4.75 mill/uL (4.70-6.10); White Blood Cell (WBC) Count 9.1 10x3/uL (4.8-10.8)
[2023-01-10 09:37] LABS: ALT (SGPT) 73 U/L (8-55); AST (SGOT) 106 U/L (5-34); Albumin 4.3 g/dL (3.5-5.0); Alkaline Phosphatase 137 U/L (40-110); Anion Gap 17 mmol/L (10-20); BUN (Urea Nitrogen) 7 mg/dL (8.4-25.7); Bilirubin, Total 0.8 mg/dL (0.2-1.2); Calc. Creatinine Clearance 0 mL/min (70-130); Calcium 9.7 mg/dL (7.8-10.44); Carbon Dioxide 28 mmol/L (22-29); Chloride 102 mmol/L (98-107); Estimated GFR 70; Globulin 3.8 g/dL (2.4-3.5); Glucose 131 mg/dL (70-105); Magnesium 1.6 mg/dL (1.6-2.6); Potassium 3.4 mmol/L (3.5-5.1); Protein, Total 8.1 g/dL (6.0-8.3); Sodium 144 mmol/L (136-145)
[2023-01-10 09:59] LABS: CKMB 2.6 ng/mL (0-6.6)
[2023-01-10] MEDS ORDERED: Aspirin Chewable 81 MG TAB ONE (11:03)
[2023-01-10] MEDS ORDERED: Magnesium 2 GM/50 ML BAG (IN WATER) ONE (11:03)
[2023-01-10] MEDS ORDERED: Potassium Chloride 20 MEQ TAB ONE (11:03)
[2023-01-10] MEDS ORDERED: Metoprolol Tartrate 5 MG/5 ML VIAL IVP SCH (12:53)
[2023-01-10] MEDS ORDERED: Ondansetron ODT 4 MG TAB PO PRN (12:54)
[2023-01-10] MEDS ORDERED: Ondansetron PF 4 MG/2 ML Vial IVP PRN (12:54)
[2023-01-10] MEDS ORDERED: Electrolyte Replacement Protocol 1 EACH FS SCH (13:00)
[2023-01-10] MEDS ORDERED: Potassium Chloride 20 MEQ in Lactated Ringer's 1,000 ML IV SCH (13:00)
[2023-01-10 13:08] LABS: Troponin I 0.094 ng/mL (< 0.028)
[2023-01-10] MEDS ORDERED: Metoprolol Tartrate 5 MG/5 ML VIAL ONE (13:55)
[2023-01-10 17:04] VITALS: BMI 30.4
[2023-01-10 17:46] LABS: Troponin I 0.142 ng/mL (< 0.028)
[2023-01-10] MEDS: Metoprolol Tartrate 25 MG TAB PO SCH (18:34)
[2023-01-10] MEDS ORDERED: NIFEdipine XL 30 MG TAB PO SCH (19:18)
[2023-01-11 04:59] LABS: #Basophils 0.1 thou/uL (0.0-0.2); #Monocytes 0.7 thou/uL (0.11-0.59); #Neutrophils 4.4 thou/uL (1.40-6.50); %Basophils 0.9 % (0.0-1.0); %Eosinophils 0.3 % (0.0-10.0); %Lymphocytes 20.1 % (21.0-51.0); %Monocytes 10.9 % (0.0-10.0); %Neutrophils 67.5 % (42.0-75.0); Hemoglobin 13.7 g/dL (14.0-18.0); Mean Corpuscular HGB CONC 34.9 g/dL (32.0-36.0); Mean Corpuscular Hemoglobin 35.8 pg (27.0-31.0); Mean Platelet Volume 9.2 fL (7.4-10.4); Platelet Count 186 10x3/uL (130-400); RBC Distribution Width 13.6 % (11.5-14.5); Red Blood Cell (RBC) Count 3.83 mill/uL (4.70-6.10); White Blood Cell (WBC) Count 6.5 10x3/uL (4.8-10.8)
[2023-01-11 05:04] LABS: Mean Corpuscular Volume 102.6 fl (78.0-98.0)
[2023-01-11 05:10] LABS: Hemoglobin A1c 5.1 % (4.0-6.0)
[2023-01-11 05:29] LABS: ALT (SGPT) 49 U/L (8-55); AST (SGOT) 56 U/L (5-34); Albumin 3.4 g/dL (3.5-5.0); Alkaline Phosphatase 93 U/L (40-110); Anion Gap 14 mmol/L (10-20); BUN (Urea Nitrogen) 6 mg/dL (8.4-25.7); Bilirubin, Total 1.3 mg/dL (0.2-1.2); Calc. Creatinine Clearance 120 mL/min (70-130); Calcium 8.4 mg/dL (7.8-10.44); Carbon Dioxide 24 mmol/L (22-29); Cardiac Risk 2.9 (Less than 4.5); Chloride 104 mmol/L (98-107); Cholesterol 207 mg/dl (< 200 Desired); Estimated GFR 100; Globulin 2.7 g/dL (2.4-3.5); Glucose 83 mg/dL (70-105); HDL Cholesterol 72 mg/dL (>60 Neg Risk); LDL Cholesterol, Calculated 123 mg/dL; Magnesium 1.8 mg/dL (1.6-2.6); Phosphorus 2.3 mg/dL (2.3-4.7); Potassium 3.6 mmol/L (3.5-5.1); Protein, Total 6.1 g/dL (6.0-8.3); Sodium 138 mmol/L (136-145); Triglycerides 61 mg/dL (Less than 150)
[2023-01-11] MEDS ORDERED: Magnesium 2 GM/50 ML(in water) 2 GM in Premix Bag 1 BAG IVPB SCH (08:00)
[2023-01-11] MEDS: Metoprolol Tartrate 25 MG TAB PO SCH (08:11)
[2023-01-11] MEDS ORDERED: Labetalol HCl 100 MG/20 ML VIAL SLOW IVP PRN (08:18)
[2023-01-11] MEDS ORDERED: Potassium Chloride 20 MEQ TAB PO SCH (08:30)
[2023-01-11] MEDS ORDERED: Thiamine 100 MG TAB PO SCH (09:00)
[2023-01-11] MEDS ORDERED: Multivitamin W/ Minerals 1 TAB PO SCH (09:00)
[2023-01-11] MEDS ORDERED: Folic Acid 1 MG TAB PO SCH (09:00)
[2023-01-11] MEDS ORDERED: Amlodipine 5 MG TAB PO SCH ×2 (09:00→11:45)
[2023-01-11] MEDS ORDERED: Aspirin 81 mg Enteric Coated Tablet PO SCH (09:00)
[2023-01-11 11:27] VITALS: TEMP 97.9
[2023-01-11 15:10] VITALS: BP 150/89
[2023-01-11] MEDS ORDERED: Atorvastatin Calcium 40 MG TAB PO SCH (21:00)
[2023-01-12] MEDS ORDERED: Amlodipine 10 MG TAB PO SCH (09:00)
== END 2023-01-11 16:15 | disposition home or self-care (01) ==
LOC: ERS 08:49 → ERHOLD 11:54 → 2SW 16:11
PROVIDERS: ADMIT Internal Medicine; ATTEND Internal Medicine
DX: E78.5 Hyperlipidemia, unspecified (principal); E87.6 Hypokalemia; I10 Essential (primary) hypertension; R00.2 Palpitations; F17.290 Nicotine dependence, other tobacco product, uncomplicated; I47.1 Supraventricular tachycardia; R77.8 Other specified abnormalities of plasma proteins; Z88.8 Allergy status to other drugs, medicaments and biological substances; Z88.5 Allergy status to narcotic agent; Z96.641 Presence of right artificial hip joint; F10.10 Alcohol abuse, uncomplicated; Z79.82 Long term (current) use of aspirin; Y90.9 Presence of alcohol in blood, level not specified
CPT/HCPCS: 36415; 71045; 80053; 80061; 82310; 82553; 83036; 83735; 83880; 84100; 84443; 84484; 85025; 93005; 93010; 93306; 94760; 96365; 96366; 96375; 96376; G0378; J0153; J1650; J3475; J3480; J7120

== ENCOUNTER 2023-02-13 08:41 | Outpatient (CLI) | payer BC | END 2023-02-13 08:42 | disposition home or self-care (01) | LOC: BICMRI 08:41 | PROVIDERS: ATTEND Family Medicine | DX: M47.22 Other spondylosis with radiculopathy, cervical region (principal); M48.02 Spinal stenosis, cervical region; M48.03 Spinal stenosis, cervicothoracic region | CPT/HCPCS: 72141 ==

== ENCOUNTER 2023-05-16 14:29 | Outpatient (CLI) | payer BC ==
[2023-05-16 17:43] LABS: Hematocrit 42.3 % (38.8-50.0); Hemoglobin 14.8 g/dL (13.5-17.5); Mean Corpuscular Hemoglobin 36.8 pg (27.0-33.0); Mean Corpuscular Volume 105.2 fl (81.2-95.1); Mean Platelet Volume 10.1 fl (7.4-10.4); Platelet Count 235 10x3/uL (150-450); Red Blood Cell (RBC) Count 4.02 10x6/uL (4.32-5.72); White Blood Cell (WBC) Count 7.7 10x3/uL (3.5-10.5)
[2023-05-16 17:45] LABS: Anion Gap 18 mmol/L (10-20); BUN (Urea Nitrogen) 12 mg/dL (8.4-25.7); Calc. Creatinine Clearance 0 mL/min (70-130); Calcium 8.6 mg/dL (7.8-10.44); Carbon Dioxide 31 mmol/L (22-29); Chloride 94 mmol/L (98-107); Estimated GFR 74; Glucose 85 mg/dL (70-105); Sodium 140 mmol/L (136-145)
== END 2023-05-16 14:30 | disposition home or self-care (01) ==
LOC: LABBT 14:29
PROVIDERS: ATTEND Neurological Surgery
DX: Z01.812 Encounter for preprocedural laboratory examination (principal); M48.02 Spinal stenosis, cervical region; M54.12 Radiculopathy, cervical region
CPT/HCPCS: 80048; 85027

== ENCOUNTER 2023-05-23 07:39 | Day surgery (SDC) | payer BC ==
[2023-05-21 13:17] VITALS: BMI 28.5
[2023-05-23] MEDS ORDERED: CEFAZOLIN 2 GM VIAL ONE ×2 (09:58→14:13)
[2023-05-23] MEDS ORDERED: Sodium Chloride 0.9% 100 ML ONE ×2 (09:58→14:14)
[2023-05-23] MEDS ORDERED: Magnesium 5 GM/10 ML VIAL ONE (10:06)
[2023-05-23] MEDS ORDERED: fentaNYL PF 100 MCG/2 ML SYRINGE ONE (10:06)
[2023-05-23] MEDS ORDERED: Ondansetron PF 4 MG/2 ML Vial ONE (10:18)
[2023-05-23] MEDS ORDERED: PHENYLEPHRINE-NS 100 MCG/ML 10 ML SYRINGE ONE (10:18)
[2023-05-23] MEDS ORDERED: NEOSTIGMINE 3 MG/3 ML SYR 3 MG/3 ML SYRINGE ONE (10:18)
[2023-05-23] MEDS ORDERED: PROPOFOL 200 MG/20 ML VIAL ONE (10:18)
[2023-05-23] MEDS ORDERED: Dexamethasone 20 MG/5 ML VIAL ONE (10:18)
[2023-05-23] MEDS ORDERED: Glycopyrrolate 0.2 MG/ML 5 ML SYRINGE ONE (10:18)
[2023-05-23] MEDS ORDERED: ePHEDrine Sulfate 50 MG/10 ML VIAL ONE (10:18)
[2023-05-23] MEDS ORDERED: Rocuronium Bromide 10 MG/ML (10ML VIAL) ONE (10:18)
[2023-05-23] MEDS ORDERED: Thrombin 5000 UNITS/5 ML VIAL ONE (10:38)
[2023-05-23] MEDS ORDERED: Tamsulosin HCl 0.4 MG CAP ONE (11:40)
== END 2023-05-23 16:16 | disposition home or self-care (01) ==
LOC: SDC 07:39
PROVIDERS: ATTEND Neurological Surgery
PROC: 0RG10K1 Fusion of Cervical Vertebral Joint with Nonautologous Tissue Substitute, Posterior Approach, Posterior Column, Open Approach (ICD-10-PCS; principal; 2023-05-23)
DX: M48.02 Spinal stenosis, cervical region (principal); M54.12 Radiculopathy, cervical region; I10 Essential (primary) hypertension; I47.10 Supraventricular tachycardia, unspecified; Z98.890 Other specified postprocedural states; Z79.899 Other long term (current) drug therapy; Z87.891 Personal history of nicotine dependence; Z88.6 Allergy status to analgesic agent; Z88.5 Allergy status to narcotic agent
CPT/HCPCS: C1713; C1889; J1100; J2405; J2704; J3475; J3490

== ENCOUNTER 2023-08-11 11:59 | Inpatient (IN) | payer BC ==
[2023-08-11 12:36] LABS: #Monocytes 0.8 thou/uL (0.11-0.59); #Neutrophils 6.1 thou/uL (1.40-6.50); %Basophils 0.3 % (0.0-1.0); %Lymphocytes 8.2 % (21.0-51.0); %Monocytes 9.9 % (0.0-10.0); %Neutrophils 81.1 % (42.0-75.0); Hematocrit 38.3 % (42.0-52.0); Hemoglobin 13.8 g/dL (14.0-18.0); Mean Corpuscular Hemoglobin 37.3 pg (27.0-31.0); Mean Corpuscular Volume 103.5 fl (78.0-98.0); Mean Platelet Volume 9.2 fL (7.4-10.4); Platelet Count 153 10x3/uL (130-400); RBC Distribution Width 16.6 % (11.5-14.5); White Blood Cell (WBC) Count 7.6 10x3/uL (4.8-10.8)
[2023-08-11 13:04] LABS: Troponin I 0.096 ng/mL (< 0.028)
[2023-08-11 13:06] LABS: ALT (SGPT) 24 U/L (8-55); AST (SGOT) 44 U/L (5-34); Albumin 4.1 g/dL (3.5-5.0); Alkaline Phosphatase 138 U/L (40-110); Anion Gap 18 mmol/L (10-20); BUN (Urea Nitrogen) 13 mg/dL (8.4-25.7); Bilirubin, Total 2.5 mg/dL (0.2-1.2); Calc. Creatinine Clearance 0 mL/min (70-130); Calcium 8.9 mg/dL (7.8-10.44); Carbon Dioxide 30 mmol/L (22-29); Chloride 92 mmol/L (98-107); Estimated GFR 71; Glucose 162 mg/dL (70-105); Potassium 3.2 mmol/L (3.5-5.1); Protein, Total 7.1 g/dL (6.0-8.3); Sodium 137 mmol/L (136-145)
[2023-08-11 13:46] LABS: SARS-CoV-2 NAA Rapid Test Not Detected (NotDetected)
[2023-08-11 14:13] LABS: Bacteria/HPF None Seen HPF (None Seen); Blood, Urine Negative (Negative); CAUTI Indications for Culture Dysuria,urgency,freq; Glucose, Urine (Dipstick) Normal (Negative); Ketone, Urine 10 mg/dL (Negative); Leukocyte 25 Leu/uL (Negative); Nitrite Negative (Negative); Protein, Urine (Dipstick) 50 mg/dL (Neg-Trace); RBC/HPF 0-3 HPF (0-3); Specific Gravity, Urine 1.029 (1.002-1.036); Squamous Epithelial 0-3 HPF (0-3)
[2023-08-11 14:19] LABS: Clarity Hazy (Clear); Urobilinogen UNABLE TO INTERPRET mg/dL (Less than 2)
[2023-08-11 14:20] LABS: Bilirubin Unable to Interpret (Negative)
[2023-08-11 14:22] LABS: Urine Culture Reflex No No
[2023-08-11] MEDS ORDERED: Glucagon 1 MG/ML KIT IM PRN (15:00)
[2023-08-11] MEDS ORDERED: Dextrose 50% Abboject 50 ML SYRINGE SLOW IVP PRN (15:00)
[2023-08-11] MEDS ORDERED: Dextrose 5% in Water 1,000 ML IV PRN (15:00)
[2023-08-11] MEDS ORDERED: Acetaminophen 325 MG TAB PO PRN (15:09)
[2023-08-11] MEDS ORDERED: Ondansetron PF 4 MG/2 ML Vial IVP PRN (15:14)
[2023-08-11] MEDS ORDERED: hydrALAZINE 20 MG/ML VIAL SLOW IVP PRN (15:14)
[2023-08-11] MEDS ORDERED: Ondansetron ODT 4 MG TAB PO PRN (15:14)
[2023-08-11] MEDS ORDERED: Potassium Chloride 20 MEQ TAB ONE (15:29)
[2023-08-11 16:23] VITALS: BMI 27.8
[2023-08-11] MEDS ORDERED: Lactated Ringer's 500 ML IV SCH (18:15)
[2023-08-12 05:25] LABS: #Monocytes 0.8 thou/uL (0.11-0.59); #Neutrophils 4.4 thou/uL (1.40-6.50); %Basophils 0.3 % (0.0-1.0); %Lymphocytes 14.6 % (21.0-51.0); %Monocytes 12.8 % (0.0-10.0); %Neutrophils 71.8 % (42.0-75.0); Hematocrit 33.9 % (42.0-52.0); Hemoglobin 12.1 g/dL (14.0-18.0); Mean Corpuscular HGB CONC 35.7 g/dL (32.0-36.0); Mean Corpuscular Hemoglobin 37.2 pg (27.0-31.0); Mean Corpuscular Volume 104.3 fl (78.0-98.0); Mean Platelet Volume 9.6 fL (7.4-10.4); Platelet Count 131 10x3/uL (130-400); RBC Distribution Width 16.7 % (11.5-14.5); Red Blood Cell (RBC) Count 3.25 mill/uL (4.70-6.10); White Blood Cell (WBC) Count 6.1 10x3/uL (4.8-10.8)
[2023-08-12 05:41] LABS: Hemoglobin A1c 5.6 % (4.0-6.0)
[2023-08-12 06:21] LABS: ALT (SGPT) 17 U/L (8-55); AST (SGOT) 33 U/L (5-34); Albumin 3.6 g/dL (3.5-5.0); Alkaline Phosphatase 113 U/L (40-110); Anion Gap 17 mmol/L (10-20); BUN (Urea Nitrogen) 14 mg/dL (8.4-25.7); Bilirubin, Total 2.3 mg/dL (0.2-1.2); Calc. Creatinine Clearance 117 mL/min (70-130); Calcium 8.3 mg/dL (7.8-10.44); Carbon Dioxide 28 mmol/L (22-29); Cardiac Risk 2.1 (Less than 4.5); Chloride 94 mmol/L (98-107); Cholesterol 160 mg/dl (< 200 Desired); Estimated GFR 100; Globulin 2.4 g/dL (2.4-3.5); Glucose 99 mg/dL (70-105); HDL Cholesterol 77 mg/dL (>60 Neg Risk); LDL Cholesterol, Calculated 69 mg/dL; Sodium 136 mmol/L (136-145); Triglycerides 69 mg/dL (Less than 150)
[2023-08-12] MEDS: Acetaminophen 325 MG TAB PO SCH ×3 (08:38→20:22)
[2023-08-12] MEDS ORDERED: Lorazepam 2 MG/ML VIAL SLOW IVP SCH (09:00)
[2023-08-12] MEDS ORDERED: Potassium Chloride 20 MEQ TAB PO SCH (19:45)
[2023-08-12] MEDS ORDERED: Metoprolol Tartrate 5 MG (5 mL) VIAL IVP SCH (20:00)
[2023-08-12 20:22] LABS: Anion Gap 14 mmol/L (10-20); BUN (Urea Nitrogen) 18 mg/dL (8.4-25.7); Calc. Creatinine Clearance 86 mL/min (70-130); Calcium 8.8 mg/dL (7.8-10.44); Carbon Dioxide 30 mmol/L (22-29); Chloride 93 mmol/L (98-107); Estimated GFR 70; Glucose 126 mg/dL (70-105); Magnesium 1.1 mg/dL (1.6-2.6); Sodium 134 mmol/L (136-145)
[2023-08-12] MEDS ORDERED: Magnesium 2 GM/50 ML(in water) 2 GM in Premix 1 BAG IVPB SCH (21:00)
[2023-08-13] MEDS: Acetaminophen 325 MG TAB PO SCH ×3 (03:02→13:18)
[2023-08-13 04:24] LABS: #Monocytes 0.6 thou/uL (0.11-0.59); #Neutrophils 3.6 thou/uL (1.40-6.50); %Basophils 0.3 % (0.0-1.0); %Eosinophils 0.2 % (0.0-10.0); %Lymphocytes 26.7 % (21.0-51.0); %Monocytes 10.1 % (0.0-10.0); Hematocrit 33.3 % (42.0-52.0); Hemoglobin 11.7 g/dL (14.0-18.0); Mean Corpuscular HGB CONC 35.1 g/dL (32.0-36.0); Mean Corpuscular Hemoglobin 36.8 pg (27.0-31.0); Mean Corpuscular Volume 104.7 fl (78.0-98.0); Mean Platelet Volume 10.1 fL (7.4-10.4); Platelet Count 120 10x3/uL (130-400); RBC Distribution Width 16.8 % (11.5-14.5); Red Blood Cell (RBC) Count 3.18 mill/uL (4.70-6.10); White Blood Cell (WBC) Count 5.9 10x3/uL (4.8-10.8)
[2023-08-13 04:50] LABS: Anion Gap 12 mmol/L (10-20); BUN (Urea Nitrogen) 17 mg/dL (8.4-25.7); Calc. Creatinine Clearance 109 mL/min (70-130); Calcium 8.7 mg/dL (7.8-10.44); Carbon Dioxide 30 mmol/L (22-29); Chloride 95 mmol/L (98-107); Estimated GFR 93; Glucose 105 mg/dL (70-105); Magnesium 1.7 mg/dL (1.6-2.6); Potassium 3.3 mmol/L (3.5-5.1); Sodium 134 mmol/L (136-145)
[2023-08-13 08:09] VITALS: TEMP 98.5
[2023-08-13 12:45] VITALS: BP 121/72
== END 2023-08-13 13:46 | disposition home or self-care (01) | DRG 83 ==
LOC: ERS 11:59 → ERHOLD 15:09 → 2SE 23:07
PROVIDERS: ADMIT Family Medicine; ATTEND Family Medicine
DX: S06.5XAA Traumatic subdural hemorrhage with loss of consciousness status unknown, initial encounter (principal); I24.89 Other forms of acute ischemic heart disease; I10 Essential (primary) hypertension; M19.90 Unspecified osteoarthritis, unspecified site; E80.6 Other disorders of bilirubin metabolism; R79.89 Other specified abnormal findings of blood chemistry; W19.XXXA Unspecified fall, initial encounter; Z96.641 Presence of right artificial hip joint; Z98.890 Other specified postprocedural states; Z88.5 Allergy status to narcotic agent; Z11.52 Encounter for screening for COVID-19
CPT/HCPCS: 36415; 36416; 70450; 70551; 71045; 72125; 76705; 80048; 80053; 80061; 81001; 83036; 83735; 84443; 84484; 85025; 93005; 93010; 93306; 93880; J0360; J2060; J3475; J7120

== ENCOUNTER 2023-12-09 08:37 | Outpatient (CLI) | payer BC | END 2023-12-09 08:38 | disposition home or self-care (01) | LOC: NM 08:37 | PROVIDERS: ATTEND Orthopaedic Surgery | DX: Z47.1 Aftercare following joint replacement surgery (principal); Z96.641 Presence of right artificial hip joint | CPT/HCPCS: 78315; A9503 ==

== ENCOUNTER 2024-05-04 16:48 | Inpatient (IN) | payer BC ==
[2024-05-04 17:27] VITALS: BMI 28.5
[2024-05-04] MEDS ORDERED: Acetaminophen 650 MG Suppository PR PRN (18:16)
[2024-05-04] MEDS: Atorvastatin Calcium 40 MG TAB PO SCH (20:20)
[2024-05-05] MEDS: Acetaminophen 325 MG TAB PO PRN (00:37)
[2024-05-05 03:46] LABS: #Basophils 0.06 10x3/uL (0.0-0.2); %Basophils 0.7 % (0.0-1.0); %Eosinophils 0.7 % (0.0-10.0); %Lymphocytes 18.7 % (21.0-51.0); %Monocytes 9.7 % (0.0-10.0); Hematocrit 29.6 % (42.0-52.0); Hemoglobin 10.2 g/dL (14.0-18.0); Mean Corpuscular HGB CONC 34.5 g/dL (32.0-36.0); Mean Corpuscular Hemoglobin 36.2 pg (27.0-31.0); Mean Platelet Volume 9.2 fL (7.4-10.4); Platelet Count 216 10x3/uL (130-400); RBC Distribution Width 16.4 % (11.5-14.5); Red Blood Cell (RBC) Count 2.82 mill/uL (4.70-6.10)
[2024-05-05 04:34] LABS: Anion Gap 14 mmol/L (10-20); BUN (Urea Nitrogen) 15 mg/dL (8.4-25.7); Calc. Creatinine Clearance 80 mL/min (70-130); Calcium 7.2 mg/dL (7.8-10.44); Carbon Dioxide 23 mmol/L (22-29); Chloride 103 mmol/L (98-107); Estimated GFR 63; Glucose 90 mg/dL (70-105); Potassium 2.5 mmol/L (3.5-5.1); Sodium 137 mmol/L (136-145)
[2024-05-05] MEDS ORDERED: Electrolyte Replacement Protocol 1 EACH FS SCH (05:00)
[2024-05-05] MEDS: Potassium Chloride 20 MEQ in Premix 1 BAG IVPB SCH (05:15)
[2024-05-05 07:35] LABS: Magnesium 1.3 mg/dL (1.6-2.6)
[2024-05-05] MEDS ORDERED: Enoxaparin 40 MG (0.4 mL) SYRINGE SC SCH (09:00)
[2024-05-05] MEDS: Magnesium Sulfate In Water 4 GM in Premix 1 BAG IVPB SCH (09:51)
[2024-05-05 12:34] LABS: Anion Gap 11 mmol/L (10-20); BUN (Urea Nitrogen) 13 mg/dL (8.4-25.7); Calc. Creatinine Clearance 105 mL/min (70-130); Calcium 7.5 mg/dL (7.8-10.44); Carbon Dioxide 28 mmol/L (22-29); Chloride 104 mmol/L (98-107); Estimated GFR 87; Glucose 108 mg/dL (70-105); Magnesium 1.4 mg/dL (1.6-2.6); Potassium 3.6 mmol/L (3.5-5.1); Sodium 139 mmol/L (136-145)
[2024-05-05 18:13] LABS: Potassium 3.2 mmol/L (3.5-5.1)
[2024-05-05] MEDS: Magnesium 2 GM/50 ML(in water) 2 GM in Premix 1 BAG IVPB SCH (18:29)
[2024-05-05] MEDS: Potassium Chloride 20 MEQ TAB PO SCH (21:45)
[2024-05-06 04:01] LABS: Anion Gap 12 mmol/L (10-20); BUN (Urea Nitrogen) 11 mg/dL (8.4-25.7); Calc. Creatinine Clearance 126 mL/min (70-130); Calcium 7.6 mg/dL (7.8-10.44); Carbon Dioxide 22 mmol/L (22-29); Chloride 105 mmol/L (98-107); Estimated GFR 101; Glucose 94 mg/dL (70-105); Magnesium 2.2 mg/dL (1.6-2.6); Potassium 3.2 mmol/L (3.5-5.1); Sodium 136 mmol/L (136-145)
[2024-05-06 08:17] VITALS: TEMP 97.7
[2024-05-06] MEDS: Potassium Chloride 20 MEQ TAB PO SCH (08:47)
[2024-05-06 12:36] VITALS: BP 152/94
== END 2024-05-06 14:28 | disposition home or self-care (01) | DRG 309 ==
LOC: 2SE 16:48 → INTOOBSV 16:48 → OBSVTOIN 05-05 17:07
PROVIDERS: ADMIT Internal Medicine; ATTEND Family Medicine
DX: I47.10 Supraventricular tachycardia, unspecified (principal); N17.9 Acute kidney failure, unspecified; E78.5 Hyperlipidemia, unspecified; I10 Essential (primary) hypertension; E83.42 Hypomagnesemia; E87.6 Hypokalemia; Z88.5 Allergy status to narcotic agent; Z79.899 Other long term (current) drug therapy
CPT/HCPCS: 36415; 71045; 80048; 80053; 83735; 84443; 85025; 92960; 93005; 93306; 96374; J2250; J3475; J3480

== ENCOUNTER 2024-05-11 06:49 | Day surgery (SDC) | payer BC ==
[2024-05-10 10:02] VITALS: BMI 27.8
[2024-05-11] MEDS ORDERED: Heparin 10,000 UNITS/ 10 ML VIAL ONE (06:54)
[2024-05-11] MEDS ORDERED: Propofol 1,000 MG/100 ML VIAL IV ONE (07:17)
[2024-05-11] MEDS ORDERED: fentaNYL 50 mcg/mL 1 mL Vial ONE (08:01)
[2024-05-11] MEDS ORDERED: Midazolam HCl 2 mg/2 ml Vial ONE ×2 (08:06→08:13)
[2024-05-11] MEDS ORDERED: Isoproterenol 0.2 MG/1 ML AMP ONE (09:03)
[2024-05-11] MEDS ORDERED: Metoprolol Tartrate 5 MG (5 mL) VIAL ONE (10:35)
[2024-05-11] MEDS ORDERED: Labetalol HCl 100 MG/20 ML VIAL ONE (11:37)
[2024-05-11] MEDS ORDERED: cloNIDine 0.1 MG TAB ONE (13:47)
== END 2024-05-11 15:25 | disposition home or self-care (01) ==
LOC: SDC 06:49
PROVIDERS: ATTEND Internal Medicine Cardiovascular Disease
PROC: 4A023FZ Measurement of Cardiac Rhythm, Percutaneous Approach (ICD-10-PCS; principal; 2024-05-11)
PROC: 4A0234Z Measurement of Cardiac Electrical Activity, Percutaneous Approach (ICD-10-PCS; principal; 2024-05-11)
DX: I47.0 Re-entry ventricular arrhythmia (principal); I10 Essential (primary) hypertension; E78.5 Hyperlipidemia, unspecified; Z88.5 Allergy status to narcotic agent; Z79.899 Other long term (current) drug therapy
CPT/HCPCS: 93005; 93010; 93653; C1730; C1760; C1769; C1894; C2630; J1644; J2250; J2704; J3010

== ENCOUNTER 2025-02-25 20:21 | Inpatient (IN) | payer BC ==
[2025-02-25 21:10] LABS: #Basophils 0.06 10x3/uL (0.0-0.2); #Eosinophils 0.09 10x3/uL (0.0-0.7); #Monocytes 1.00 10x3/uL (0.11-0.59); #Neutrophils 3.52 10x3/uL (1.40-6.50); %Basophils 1.0 % (0.0-1.0); %Eosinophils 1.4 % (0.0-10.0); %Lymphocytes 21.3 % (21.0-51.0); %Monocytes 16.0 % (0.0-10.0); %Neutrophils 56.5 % (42.0-75.0); Hematocrit 35.1 % (42.0-52.0); Hemoglobin 12.2 g/dL (14.0-18.0); Mean Corpuscular Hemoglobin 35.9 pg (27.0-31.0); Mean Corpuscular Volume 103.2 fL (78.0-98.0); Platelet Count 264 10x3/uL (130-400); Red Blood Cell (RBC) Count 3.40 mill/uL (4.70-6.10); White Blood Cell (WBC) Count 6.24 10x3/uL (4.8-10.8)
[2025-02-25 21:31] LABS: ALT (SGPT) 91 U/L (Less than 45); AST (SGOT) 158 U/L (11-34); Albumin 2.8 g/dL (3.1-4.5); Alkaline Phosphatase 194 U/L (40-110); Anion Gap 17 mmol/L (10-20); BUN (Urea Nitrogen) 28 mg/dL (8.4-25.7); Bilirubin, Total 1.9 mg/dL (0.3-1.2); Calc. Creatinine Clearance 0 mL/min (70-130); Calcium 8.6 mg/dL (7.8-10.44); Carbon Dioxide 37 mmol/L (22-29); Chloride 90 mmol/L (98-107); Globulin 2.9 g/dL (2.4-3.5); Glucose 126 mg/dL (70-105); Magnesium 1.5 mg/dL (1.6-2.6); Potassium 2.1 mmol/L (3.5-5.1); Sodium 142 mmol/L (136-145)
[2025-02-25] MEDS ORDERED: NS 0.9% w/ 20 MEQ KCL 1,000 ML ONE (21:44)
[2025-02-25] MEDS ORDERED: Acetaminophen 325 MG TAB PO PRN (23:04)
[2025-02-26 01:31] LABS: Potassium 2.3 mmol/L (3.5-5.1)
[2025-02-26] MEDS: Potassium Chloride 20 MEQ in Premix 1 BAG IVPB SCH (01:47)
[2025-02-26 02:53] VITALS: BMI 29.5
[2025-02-26 04:09] LABS: #Basophils 0.06 10x3/uL (0.0-0.2); #Eosinophils 0.09 10x3/uL (0.0-0.7); #Monocytes 0.94 10x3/uL (0.11-0.59); #Neutrophils 3.06 10x3/uL (1.40-6.50); %Basophils 1.1 % (0.0-1.0); %Eosinophils 1.6 % (0.0-10.0); %Lymphocytes 21.0 % (21.0-51.0); %Monocytes 16.9 % (0.0-10.0); %Neutrophils 55.1 % (42.0-75.0); Hematocrit 32.1 % (42.0-52.0); Hemoglobin 11.3 g/dL (14.0-18.0); Mean Corpuscular Hemoglobin 36.3 pg (27.0-31.0); Mean Corpuscular Volume 103.2 fL (78.0-98.0); Platelet Count 218 10x3/uL (130-400); Red Blood Cell (RBC) Count 3.11 mill/uL (4.70-6.10); White Blood Cell (WBC) Count 5.56 10x3/uL (4.8-10.8)
[2025-02-26 04:31] LABS: ALT (SGPT) 80 U/L (Less than 45); AST (SGOT) 142 U/L (11-34); Albumin 2.3 g/dL (3.1-4.5); Alkaline Phosphatase 176 U/L (40-110); Anion Gap 16 mmol/L (10-20); BUN (Urea Nitrogen) 25 mg/dL (8.4-25.7); Bilirubin, Total 1.8 mg/dL (0.3-1.2); Calc. Creatinine Clearance 78 mL/min (70-130); Calcium 8.0 mg/dL (7.8-10.44); Carbon Dioxide 33 mmol/L (22-29); Chloride 94 mmol/L (98-107); Globulin 2.5 g/dL (2.4-3.5); Glucose 97 mg/dL (70-105); Potassium 2.5 mmol/L (3.5-5.1); Sodium 140 mmol/L (136-145)
[2025-02-26] MEDS: Famotidine 20 MG TAB PO SCH (10:21)
[2025-02-26] MEDS: Famotidine/PF 20 mg/2ml Vial SLOW IVP SCH (10:21)
[2025-02-26] MEDS: Enoxaparin 40 MG (0.4 mL) SYRINGE SC SCH (10:21)
[2025-02-26] MEDS: Magnesium Sulfate In Water 4 GM in Premix 1 BAG IVPB SCH (10:24)
[2025-02-26 12:31] LABS: Anion Gap 14 mmol/L (10-20); BUN (Urea Nitrogen) 21 mg/dL (8.4-25.7); Calc. Creatinine Clearance 95 mL/min (70-130); Calcium 8.2 mg/dL (7.8-10.44); Carbon Dioxide 33 mmol/L (22-29); Chloride 96 mmol/L (98-107); Glucose 137 mg/dL (70-105); Potassium 2.7 mmol/L (3.5-5.1); Sodium 140 mmol/L (136-145)
[2025-02-26] MEDS: Albumin 25% 25 GM (100 mL) BOT IVPB SCH (17:58)
[2025-02-26] MEDS ORDERED: Lisinopril 10 MG TAB PO SCH (21:00)
[2025-02-26] MEDS: Magnesium Oxide 400 MG TAB PO SCH (21:24)
[2025-02-27] MEDS: Mag-Al 1200 mg/1200 mg/30 ML UDCUP PO SCH (01:18)
[2025-02-27 05:07] LABS: #Basophils 0.04 10x3/uL (0.0-0.2); #Eosinophils 0.06 10x3/uL (0.0-0.7); #Monocytes 0.48 10x3/uL (0.11-0.59); #Neutrophils 3.58 10x3/uL (1.40-6.50); %Basophils 0.8 % (0.0-1.0); %Eosinophils 1.2 % (0.0-10.0); %Lymphocytes 15.4 % (21.0-51.0); %Monocytes 9.3 % (0.0-10.0); %Neutrophils 69.1 % (42.0-75.0); Hematocrit 32.3 % (42.0-52.0); Hemoglobin 10.8 g/dL (14.0-18.0); Mean Corpuscular Hemoglobin 35.6 pg (27.0-31.0); Mean Corpuscular Volume 106.6 fL (78.0-98.0); Platelet Count 245 10x3/uL (130-400); Red Blood Cell (RBC) Count 3.03 mill/uL (4.70-6.10); White Blood Cell (WBC) Count 5.18 10x3/uL (4.8-10.8)
[2025-02-27 05:32] LABS: ALT (SGPT) 76 U/L (Less than 45); AST (SGOT) 128 U/L (11-34); Albumin 2.9 g/dL (3.1-4.5); Alkaline Phosphatase 170 U/L (40-110); Anion Gap 17 mmol/L (10-20); BUN (Urea Nitrogen) 15 mg/dL (8.4-25.7); Bilirubin, Total 2.1 mg/dL (0.3-1.2); Calc. Creatinine Clearance 95 mL/min (70-130); Calcium 8.2 mg/dL (7.8-10.44); Carbon Dioxide 28 mmol/L (22-29); Chloride 104 mmol/L (98-107); Globulin 2.3 g/dL (2.4-3.5); Glucose 123 mg/dL (70-105); Potassium 3.1 mmol/L (3.5-5.1); Sodium 146 mmol/L (136-145)
[2025-02-27] MEDS: Ondansetron PF 4 MG/2 ML Vial IVP PRN (06:04)
[2025-02-27] MEDS: Senokot S 8.6-50 MG TAB PO SCH (09:55)
[2025-02-27] MEDS: Simethicone Chewable 80 MG TAB PO PRN (09:55)
[2025-02-27 10:28] LABS: Magnesium 1.6 mg/dL (1.6-2.6)
[2025-02-27] MEDS: Albumin 25% 25 GM (100 mL) BOT IVPB SCH (12:07)
[2025-02-27] MEDS: Magnesium 2 GM/50 ML(in water) 2 GM in Premix 1 BAG IVPB SCH (14:00)
[2025-02-28 04:38] LABS: #Basophils 0.04 10x3/uL (0.0-0.2); #Eosinophils 0.07 10x3/uL (0.0-0.7); #Monocytes 0.84 10x3/uL (0.11-0.59); #Neutrophils 6.63 10x3/uL (1.40-6.50); %Basophils 0.5 % (0.0-1.0); %Eosinophils 0.8 % (0.0-10.0); %Lymphocytes 11.4 % (21.0-51.0); %Monocytes 9.7 % (0.0-10.0); %Neutrophils 76.7 % (42.0-75.0); Hematocrit 31.3 % (42.0-52.0); Hemoglobin 10.7 g/dL (14.0-18.0); Mean Corpuscular Hemoglobin 36.6 pg (27.0-31.0); Mean Corpuscular Volume 107.2 fL (78.0-98.0); Platelet Count 205 10x3/uL (130-400); Red Blood Cell (RBC) Count 2.92 mill/uL (4.70-6.10); White Blood Cell (WBC) Count 8.65 10x3/uL (4.8-10.8)
[2025-02-28 05:04] LABS: Anion Gap 12 mmol/L (10-20); BUN (Urea Nitrogen) 13 mg/dL (8.4-25.7); Calc. Creatinine Clearance 135 mL/min (70-130); Calcium 8.2 mg/dL (7.8-10.44); Carbon Dioxide 29 mmol/L (22-29); Chloride 103 mmol/L (98-107); Glucose 105 mg/dL (70-105); Magnesium 2.1 mg/dL (1.6-2.6); Potassium 3.7 mmol/L (3.5-5.1); Sodium 140 mmol/L (136-145)
[2025-02-28] MEDS: Metoprolol Succinate XL 100 MG ER.TAB PO SCH (08:30)
[2025-02-28] MEDS ORDERED: Metoprolol Succinate XL 100 MG ER.TAB PO SCH (09:00)
[2025-02-28 11:54] VITALS: BP 103/69; TEMP 98.6
== END 2025-02-28 12:19 | disposition home or self-care (01) | DRG 683 ==
LOC: ERS 20:21 → 2SE 22:30 → OBSVTOIN 02-26 09:52
PROVIDERS: ADMIT Internal Medicine; ATTEND Internal Medicine
DX: N17.9 Acute kidney failure, unspecified (principal); E87.3 Alkalosis; I50.32 Chronic diastolic (congestive) heart failure; E87.6 Hypokalemia; E86.0 Dehydration; E83.42 Hypomagnesemia; R74.01 Elevation of levels of liver transaminase levels; E88.09 Other disorders of plasma-protein metabolism, not elsewhere classified; Z96.641 Presence of right artificial hip joint; I11.0 Hypertensive heart disease with heart failure; I95.9 Hypotension, unspecified; R10.9 Unspecified abdominal pain; F17.210 Nicotine dependence, cigarettes, uncomplicated; F17.220 Nicotine dependence, chewing tobacco, uncomplicated; Z88.8 Allergy status to other drugs, medicaments and biological substances; Z79.899 Other long term (current) drug therapy; Z98.1 Arthrodesis status; Z98.890 Other specified postprocedural states
CPT/HCPCS: 36415; 74018; 74176; 80048; 80053; 83735; 84132; 84133; 85025; 93005; 93010; 93306; 96366; 96376; 99285; G0378; J1308; J1650; J2405; J3475; J3480; J7030; P9047